=== PATIENT | male | born 1960 | race Caucasian/White ===

== ENCOUNTER 2023-11-03 08:30 | Outpatient (CLI) | payer OTHER | END 2023-11-03 23:59 | disposition home or self-care (01) | LOC: RAD 08:30 | PROVIDERS: ATTEND Chiropractor | DX: M79.641 Pain in right hand (principal) | CPT/HCPCS: 73130 ==

== ENCOUNTER 2024-11-04 10:05 | Emergency (ER) | payer OTHER, MEDICARE ==
[~2024-11-04] VITALS: Ht 175.3 cm; Wt 78.0 kg
[2024-11-04 10:10] VITALS: BP 145/92; PULSE 105; TEMP 97.8; O2SAT 96
[2024-11-04] MEDS ORDERED: tetanus & diphtheria toxoid (Td) vaccine 0.5ml IMVAC ONE (10:40)
[2024-11-04 10:56] VITALS: RESP 16
[2024-11-04] MEDS: HYDROcodone/acetaminophen 10/325mg tab PO ONE (10:56)
[2024-11-04] MEDS: LIDOcaine 1% 30ml preserv. free vial SQ STA (11:00)
[2024-11-04] MEDS: TETanus/Pertussis (Acell)/Diphther VAC/PF (Tdap-Adult) 0.5ml syringe IMVAC ONE (11:33)
== END 2024-11-04 12:08 | disposition home or self-care (01) ==
LOC: ER 10:06
DX: S61.213A Laceration without foreign body of left middle finger without damage to nail, initial encounter (principal); X58.XXXA Exposure to other specified factors, initial encounter; Y93.89 Activity, other specified; Y92.89 Other specified places as the place of occurrence of the external cause; Y99.8 Other external cause status
CPT/HCPCS: 12001; 90471; 90715; 99283; A6222; A6258; A6449